=== PATIENT | male | born 1990 | race Hispanic/Latino ===

== ENCOUNTER 2019-11-03 09:01 | Day surgery (SDC) | payer BC ==
[~2019-11-03 09:01] MED LIST: SODIUM CHLORIDE 0.9% 1000 ML 1,000 ML IV SCH
--- NOTE | 2019-11-03 09:45 | Anesthesia Day of Surgery ---
Anesthesia Day of Surgery - Day of Surgery Patient Examined: Yes Patient H&P Reviewed: Yes Patient is NPO: Yes
--- NOTE | 2019-11-03 09:45 | Anesthesia Consultation ---
Anesthesia Consult and Med Hx Date of service: 11/03/19 - Airway Anesthetic Teeth Evaluation: Good ROM Head & Neck: Adequate Mental/Hyoid Distance: Adequate Mallampati Class: Class II Intubation Access Assessment: Good - Pulmonary Exam CTA: Yes - Cardiac Exam Cardiac Exam: RRR - Pre-Operative Health Status ASA Pre-Surgery Classification: ASA1 Proposed Anesthetic Plan: MAC - Gastrointestinal Hx Gastroesophageal Reflux Disease: Yes (gastric pain)
[2019-11-03] MEDS ORDERED: propofoL 200 MG/20 ML VIAL IV ONE (11:33)
[2019-11-03] MEDS ORDERED: LIDOCAINE MPF (2%) 20 MG/1 ML VIAL 5 ML ONE (11:44)
--- NOTE | 2019-11-03 11:56 | Procedure Note ---
Date of procedure: 11/03/19 Pre-op diagnosis: Epigastric Pain/ R/O Peptic Ulcer disease/ F/H/o Cancer (Stomach Cancer) Post-op diagnosis: other (No Peptic Ulcer noted/ Moderate,Erosive Esophagitis/Gastritis/ R/O Celiac Disease/ R/O Eosinophilic esophagitis) Procedure: EGD with Biopsy Anesthesia: [facility] [place] Surgeon: MARÍA ELENA MCCRARY Estimated blood loss: minimal Pathology: list Specimen disposition: to lab Condition: stable Disposition: same day (Treat with PPI,prn Bentyl for abdominal pain,OTC Probiotic. Avoid aspirin and NSAID for 5 days; otherwise resume home medication and follow up in 1 to 2 weeks ([phone]).)
--- NOTE | 2019-11-03 12:24 | Operative Report ---
PROCEDURE: Esophagogastroduodenoscopy with biopsy. INDICATIONS: This is a 29-year-old male in otherwise good health, who does have a strong family history of cancer. The patient's sister had brain cancer. One grandmother had stomach cancer and mother had pancreatic cancer. The patient has been having epigastric pain, which is worsened with food. EGD was done to make sure there was not any significant upper GI pathology or any associated peptic ulcer disease present. DESCRIPTION OF PROCEDURE: The procedure was done after getting informed consent with MAC anesthesia. Instrument was passed through the hypopharynx into the esophagus, which did show moderate erosive esophagitis. Biopsy was done from the distal esophagus as well as the mid esophagus to rule out for eosinophilic esophagitis and also to assess for the severity of the erosive esophagitis. The stomach showed gastritis. Biopsy was done from the gastric antrum, gastric body and angular incisura to rule out for H. pylori and atrophic gastritis. No gastric ulcer was noted. The pylorus was patent. The duodenum in the first and second portion appeared normal. Biopsy was done from the second part to rule out for possible celiac disease. There is minimal bleeding associated with the procedure. No complications associated with the procedure. ASSESSMENT: Epigastric pain, family history of cancer. No peptic ulcer disease noted. Moderate erosive esophagitis, gastritis, rule out celiac disease. PLAN: To wait for the biopsy results, have the patient avoid aspirin and aspirin-related products for the next 5 days. Treat the patient with PPI and p.r.n. dose of Bentyl. Also, encouraged the patient to take probiotics, have the patient follow up in the office in 1-2 weeks' time. The procedure was done in the GI lab with assistance of the GI lab team, which included Mana LAW as well as Gali koch and with assistance of anesthesia. JOB# [id number] JOSUE/TONIO
[2019-11-03 12:30] VITALS: BP 113/61
--- NOTE | 2019-11-03 13:32 | Post Anesthesia Evaluation ---
- Post Anesthesia Evaluation Patient Participated: Yes Airway Patent: Yes Stable Respiratory Function: Yes Nausea/Vomiting: No Temp > 96.8F: Yes Pain Manageable: Yes Adequeate Hydration: Yes Anesthesia Complications: No Block Receding Appropriately: Not Applicable Patient on Ventilator: No
== END 2019-11-03 12:31 | disposition home or self-care (01) ==
LOC: GIO 09:01
DX: R10.13 Epigastric pain (principal); K29.70 Gastritis, unspecified, without bleeding; K21.0 Gastro-esophageal reflux disease with esophagitis; Z79.899 Other long term (current) drug therapy; Z87.891 Personal history of nicotine dependence; Z80.8 Family history of malignant neoplasm of other organs or systems; Z80.0 Family history of malignant neoplasm of digestive organs
CPT/HCPCS: 43239; 88305; J2704; J7030

== ENCOUNTER 2021-08-01 10:47 | Day surgery (SDC) | payer BC ==
[2021-08-01] MEDS ORDERED: propofoL 200 MG/20 ML VIAL IV ONE ×2 (11:11→11:45)
--- NOTE | 2021-08-01 11:22 | Anesthesia Day of Surgery ---
Anesthesia Day of Surgery - Day of Surgery Patient Examined: Yes Patient H&P Reviewed: Yes Patient is NPO: Yes
--- NOTE | 2021-08-01 11:22 | Anesthesia Consultation ---
Anesthesia Consult and Med Hx Date of service: 08/01/21 - Airway Anesthetic Teeth Evaluation: Good ROM Head & Neck: Adequate Mental/Hyoid Distance: Adequate Mallampati Class: Class II Intubation Access Assessment: Good - Pre-Operative Health Status ASA Pre-Surgery Classification: ASA2 Proposed Anesthetic Plan: MAC - Pulmonary Hx Smoking: Yes (MJ) Hx Sleep Apnea: No - Gastrointestinal Hx Gastroesophageal Reflux Disease: Yes (gastric pain) - Other Systems Hx Obesity: No - Additional Comments Anesthesia Medical History Comments: Was here 2020
[2021-08-01] MEDS ORDERED: fentaNYL 100 MCG/2 ML INJ ONE (11:24)
--- NOTE | 2021-08-01 11:59 | Procedure Note ---
Date of procedure: 08/01/21 Pre-op diagnosis: Diarrhea/ H/O COVID infection/ R/O Colitis Post-op diagnosis: other (R/O Microscopic Colitis/ R/O Ileitis/ Minor, Internal Hemorrhoids/ No endoscopic evidence of colitis noted) Procedure: Colonoscopy with Biopsy Anesthesia: [facility] [place] Surgeon: MARÍA ELENA MCCRARY Estimated blood loss: minimal Pathology: list Specimen disposition: to lab Condition: stable Disposition: same day (Treat with Welchol and OTC Probiotic; avoid aspirin and NSAID for 5 days, otherwise resume previous medication ad F/U in 1 to 2 weeks ([phone]).)
--- NOTE | 2021-08-01 12:07 | Operative Report ---
DATE OF SURGERY: 08/01/2021 PROCEDURE PERFORMED: Colonoscopy with biopsy. INDICATIONS: This is a 30-year-old white male in otherwise good health, who had COVID-19 infection about two years ago following the infection. He has been having persistent diarrhea. He does have a family history of inflammatory bowel disease. His maternal uncle has inflammatory bowel disease. Colonoscopy was done to rule out for possible IBD. DESCRIPTION OF PROCEDURE: Procedure was done after getting informed consent with MAC anesthesia. Initial rectal examination was unremarkable. The instrument was passed through the rectum onto the cecum, which was identified with ileocecal valve and appendiceal orifice. Visualization was good. The terminal ileum was intubated, showed normal mucosa. Biopsy was done to rule out for possible ileitis. The cecum was also visualized on the retroverted view. Additional biopsy was done from the cecum, ascending colon, transverse colon, descending colon, and sigmoid to rule out for possible microscopic colitis. The mucosa appeared to be normal without any endoscopic evidence of colitis present and the rectum showed minor internal hemorrhoid on the retroverted view. ASSESSMENT: Diarrhea, history of COVID-19 infection 2 years ago, rule out colitis, rule out microscopic colitis, rule out ileitis, minor internal hemorrhoid. No endoscopic evidence of colitis noted. PLAN: The patient will be asked to avoid aspirin and aspirin-related products for the next few days. He will be treated with Welchol empirically for the diarrhea as well as encouraged to take [id number] probiotics and follow up in the office in 1-2 weeks' time. Procedure was done in the GI lab with assistance of the GI lab team, which included the GI nurse, the technology manager and with assistance of anesthesia. TID: [id number] RECEIPT: [id number] JOSUE/BRYAN
[2021-08-01 14:43] VITALS: BP 117/71
== END 2021-08-01 12:25 | disposition home or self-care (01) ==
LOC: GIO 10:47
DX: R19.7 Diarrhea, unspecified (principal); R10.9 Unspecified abdominal pain; K64.8 Other hemorrhoids; K63.89 Other specified diseases of intestine; F17.210 Nicotine dependence, cigarettes, uncomplicated; K21.00 Gastro-esophageal reflux disease with esophagitis, without bleeding; Z80.8 Family history of malignant neoplasm of other organs or systems; Z80.0 Family history of malignant neoplasm of digestive organs; Z79.899 Other long term (current) drug therapy
CPT/HCPCS: 45380; 88305; J2704; J3010; J7030